=== PATIENT | male | born 1950 | race Two or more races ===

== ENCOUNTER 2019-11-21 11:48 | Inpatient (IN) | payer MEDICARE, BC ==
[~2019-11-21] VITALS: Ht 172.7 cm; Wt 86.2 kg
[2019-11-21] MEDS ORDERED: PANTOPRAZOLE 40 MG/10 ML VIAL INJ IV STA (12:19)
[2019-11-21] MEDS ORDERED: SODIUM CHLORIDE 0.9% 500 ML IVB ONE (12:19)
[2019-11-21] MEDS ORDERED: MORPHINE SULFATE 4 MG/ML SYR/VIAL IV ONE (12:30)
[2019-11-21] MEDS ORDERED: ONDANSETRON HCL 4 MG/2 ML VIAL IV ONE (12:30)
[2019-11-21] MEDS ORDERED: HYDROmorphone HCL 2 MG/ML VL IV ONE (13:15)
[2019-11-21 13:23] LABS: Basophils # (auto) 0 uL; Basophils % (auto) 0.4 % (0.0-2.0); Eosinophils # (auto) 0.1 uL; Hematocrit 46.3 % (41.0-53.0); Hemoglobin 15.4 g/dL (13.5-17.5); Lymphocytes # (auto) 1.3 uL; Mean Corpuscular Hemoglobin 30.6 pg (28.0-32.0); Mean Corpuscular Hgb Conc. 33.1 g/dL (32.0-36.0); Mean Corpuscular Volume 92.3 fL (80.0-100.0); Monocytes # (auto) 0.6 uL; Neutrophils # (auto) 9.1 uL; Neutrophils % (auto) 81.6 % (37.0-80.0); Platelet Count (auto) 124 10^3/uL (140-450); Red Blood Cells 5.02 10^6/uL (4.5-5.90); Red Cell Distribution Width 14.1 % (11.8-14.3); White Blood Cell 11.2 10^3/uL (4.4-10.8)
[2019-11-21 13:45] LABS: Anion Gap 11 (5-15); Blood Urea Nitrogen 22 mg/dL (7-18); Calcium 9.5 mg/dL (8.5-10.1); Carbon Dioxide 24 mmol/L (21-32); Chloride 104 mmol/L (98-107); Glucose 201 mg/dL (74-106); Magnesium 1.9 mg/dL (1.6-2.6); Potassium 4.6 mmol/L (3.5-5.1); Sodium 139 mmol/L (136-145)
[2019-11-21 13:49] LABS: Albumin 3.9 g/dL (3.4-5.0); BUN/Creatinine Ratio 15.3; GFR African American 63 mL/min; GFR Non-African American 52 mL/min
[2019-11-21 13:54] LABS: Alanine Aminotransferase 30 U/L (16-61); Alkaline Phosphatase 68 U/L (45-117); Aspartate Aminotransferase 25 U/L (15-37); Bilirubin, Total 0.5 mg/dL (0.2-1.0); Total Protein 7.8 g/dL (6.4-8.2)
[2019-11-21] MEDS ORDERED: PROCHLORPERAZINE EDISYLATE 5 MG/ML 2ML VIAL IV ONE (15:15)
[2019-11-21] MEDS ORDERED: GASTROGRAFIN 120 ML SOL ONE (15:50)
[2019-11-21] MEDS ORDERED: DEXTROSE (50%) 50ML SYRG IV PRN (16:00)
[2019-11-21] MEDS ORDERED: PROMETHAZINE HCL 25 MG/ML 1ML IV PRN (16:00)
[2019-11-21] MEDS ORDERED: cefTRIAXone 1GM/50ML D5W 50 ML IV ONE (16:00)
[2019-11-21] MEDS ORDERED: HYDROmorphone HCL 2 MG/ML VL IV PRN (16:00)
[2019-11-21] MEDS ORDERED: NITROGLYCERIN 0.4 MG SL TAB SL PRN (16:00)
[2019-11-21] MEDS: FAMOTIDINE (10MG/ML) 2ML VL IV SCH (17:55)
[2019-11-21] MEDS: SODIUM CHLORIDE 0.9% 1,000 ML IV SCH (17:56)
[2019-11-21] MEDS: HYDROmorphone HCL 2 MG/ML VL IV PRN (18:18)
--- NOTE | 2019-11-21 18:30 | NUR ---
Telemetry admit from [facility] admitted to Telemetry unit after SBAR received. Patient oriented to Re Prado, RN primary RN, unit, room, bed, and unit policies regarding patient care and visiting hours. Patient now on continuous telemetry monitoring, tele box # 14. Patient weighed by bedscale and encouraged to call if they need something. All questions and concerns addressed, patient verbalized understanding.
[2019-11-21] MEDS ORDERED: APIX2.5T PO (19:04)
[2019-11-21] MEDS ORDERED: EMPA1TAB3 PO (19:04)
[2019-11-21] MEDS ORDERED: REPA1TAB5 OR (19:04)
[2019-11-21] MEDS ORDERED: ATOR20TA50 PO (19:04)
[2019-11-21] MEDS ORDERED: SITA50TA28 PO (19:04)
[2019-11-21] MEDS ORDERED: PIO30T PO (19:04)
[2019-11-21] MEDS: InsuLIN REG 1unit/0.01ml Soln (100units/ml) SC SCH (19:20)
[2019-11-21] MEDS: ACCU-CHEK COMFORT CURVE STRIP VI SCH (19:24)
--- NOTE | 2019-11-21 20:00 | NUR ---
OPEN NOTE assumed care of pt, upon entering room pt awake, alert and oriented x4. pt on room air no distress noted or expressed. pt denies any pain at this time. pt family at bedside. pt and family updated on plan of care, all questions addressed. pt has NGT placed, CXR confirming placement instructed to advance 4cm, pt tolerated well. and repeat CXR ordered. bed locked, low and 2x rails up. nurse encouraged pt to call as needed. this nurse will round q1hr and prn. call light in reach.
[2019-11-21 22:00] VITALS: BP 155/77
--- NOTE | 2019-11-21 22:07 | NUR ---
NGT placement confirmed via CXR. pt connected to LIS.
[2019-11-21] MEDS: metroNIDAZOLE 500MG/100ML 100 ML IV SCH (22:08)
[2019-11-22] MEDS: InsuLIN REG 1unit/0.01ml Soln (100units/ml) SC SCH ×4 (00:30→18:00)
[2019-11-22] MEDS: ACCU-CHEK COMFORT CURVE STRIP VI SCH ×4 (00:30→18:21)
[2019-11-22] MEDS: SODIUM CHLORIDE 0.9% 1,000 ML IV SCH ×3 (01:48→22:22)
[2019-11-22] MEDS: HYDROmorphone HCL 2 MG/ML VL IV PRN (02:07)
[2019-11-22] MEDS: FAMOTIDINE (10MG/ML) 2ML VL IV SCH ×2 (04:00→16:50)
[2019-11-22 05:30] VITALS: BP 126/77
[2019-11-22] MEDS: metroNIDAZOLE 500MG/100ML 100 ML IV SCH ×3 (06:17→22:02)
--- NOTE | 2019-11-22 06:39 | NUR ---
100ml brown liquid in suction canister
--- NOTE | 2019-11-22 07:10 | NUR ---
Opening Shift Note Assumed care of patient, awake and alert. No S/S of distress/SOB or pain. Instructed on POC and to call for assist PRN, will continue to monitor for changes Q1hr and PRN. Bed is set in lowest locked position with side rails up x 2 for safety and call light is within reach.
[2019-11-22 08:05] VITALS: BP 152/88
[2019-11-22 08:41] VITALS: BP 152/88
--- NOTE | 2019-11-22 09:09 | NUR ---
Patient off unit Taken down via wheelchair to radiology for small bowel series. No signs/symptoms of distress noted at this time.
[2019-11-22] MEDS: ENOXAPARIN SOD 80 MG/0.8ML SYRINGE SC SCH ×2 (10:00→22:23)
[2019-11-22] MEDS: cefTRIAXone 1GM/50ML D5W 50 ML IV SCH (10:33)
--- NOTE | 2019-11-22 10:39 | NUR ---
MD at bedside Updated pt on POC, per MD keep suction off for now, and patient is to remain NPO.
[2019-11-22 11:02] LABS: Basophils # (auto) 0 uL; Basophils % (auto) 0.3 % (0.0-2.0); Eosinophils # (auto) 0 uL; Eosinophils % (auto) 0.3 % (0.0-7.0); Hematocrit 49.2 % (41.0-53.0); Hemoglobin 15.9 g/dL (13.5-17.5); Lymphocytes # (auto) 0.9 uL; Lymphocytes % (auto) 8.1 % (10.0-50.0); Mean Corpuscular Hemoglobin 30.5 pg (28.0-32.0); Mean Corpuscular Hgb Conc. 32.4 g/dL (32.0-36.0); Mean Corpuscular Volume 93.9 fL (80.0-100.0); Monocytes # (auto) 0.9 uL; Monocytes % (auto) 7.8 % (0.0-12.0); Neutrophils # (auto) 9.7 uL; Neutrophils % (auto) 83.5 % (37.0-80.0); Platelet Count (auto) 140 10^3/uL (140-450); Red Blood Cells 5.24 10^6/uL (4.5-5.90); Red Cell Distribution Width 14.4 % (11.8-14.3); White Blood Cell 11.7 10^3/uL (4.4-10.8)
[2019-11-22 11:14] LABS: Albumin 4.3 g/dL (3.4-5.0); Calcium 9.8 mg/dL (8.5-10.1); Potassium 4.2 mmol/L (3.5-5.1)
[2019-11-22 11:17] LABS: BUN/Creatinine Ratio 14.5; Total Protein 8.1 g/dL (6.4-8.2)
[2019-11-22 12:49] VITALS: BP 137/67
[2019-11-22 17:07] VITALS: BP 120/75
[2019-11-22] MEDS ORDERED: hydrALAZINE HCL 20 MG/ML VL IV PRN (17:15)
[2019-11-22 22:46] VITALS: BP 144/84
[2019-11-23] MEDS: D5W/SOD CHL 0.45% 1,000 ML IV SCH ×2 (00:10→09:13)
[2019-11-23] MEDS: FAMOTIDINE (10MG/ML) 2ML VL IV SCH ×2 (04:59→17:15)
[2019-11-23 05:35] VITALS: BP 141/77
[2019-11-23] MEDS: ACCU-CHEK COMFORT CURVE STRIP VI SCH ×4 (06:00→17:15)
[2019-11-23] MEDS: metroNIDAZOLE 500MG/100ML 100 ML IV SCH ×3 (06:00→21:53)
[2019-11-23] MEDS: InsuLIN REG 1unit/0.01ml Soln (100units/ml) SC SCH ×4 (06:00→17:15)
--- NOTE | 2019-11-23 07:30 | NUR ---
OPENING NOTE ASSUMED CARE OF PT. ALERT AND ORIENTED. NO S/S OF SOB/DISTRESS NOTED. DENIES ANY PAIN. SAFETY PRECAUTIONS IN PLACE. BED SET TO LOWEST POSITION/LOCKED, BEDSIDE RAILS UP X2, CALL LIGHT WITH IN REACH. INSTRUCTED PT TO CALL FOR ASSISTANCE. UPDATED ON POC. PT VERBALIZED UNDERSTANDING. WILL CONTINUE TO MONITOR Q1HR AND PRN.
[2019-11-23 07:43] LABS: Basophils # (auto) 0 uL; Basophils % (auto) 0.6 % (0.0-2.0); Eosinophils # (auto) 0.2 uL; Eosinophils % (auto) 2.8 % (0.0-7.0); Hemoglobin 15.2 g/dL (13.5-17.5); Lymphocytes # (auto) 1.7 uL; Lymphocytes % (auto) 20.9 % (10.0-50.0); Mean Corpuscular Hemoglobin 30.4 pg (28.0-32.0); Mean Corpuscular Hgb Conc. 32.2 g/dL (32.0-36.0); Mean Corpuscular Volume 94.4 fL (80.0-100.0); Monocytes # (auto) 0.6 uL; Monocytes % (auto) 7.2 % (0.0-12.0); Neutrophils # (auto) 5.5 uL; Neutrophils % (auto) 68.5 % (37.0-80.0); Nucleated Red Blood Cells % 0.1 %; Platelet Count (auto) 119 10^3/uL (140-450); Red Blood Cells 4.98 10^6/uL (4.5-5.90); Red Cell Distribution Width 14.4 % (11.8-14.3)
[2019-11-23 08:09] LABS: BUN/Creatinine Ratio 18.8; Calcium 8.8 mg/dL (8.5-10.1); Magnesium 2.2 mg/dL (1.6-2.6); Potassium 3.5 mmol/L (3.5-5.1)
[2019-11-23 08:47] VITALS: BP 157/83
[2019-11-23] MEDS: cefTRIAXone 1GM/50ML D5W 50 ML IV SCH (09:13)
[2019-11-23] MEDS: ENOXAPARIN SOD 80 MG/0.8ML SYRINGE SC SCH (09:13)
--- NOTE | 2019-11-23 12:15 | NUR ---
NGT removal NGT removed per MD order following explanation and instruction to patient. Patient verbalized understanding prior to removal. Patient tolerated well.
[2019-11-23 13:00] VITALS: BP 139/80
--- NOTE | 2019-11-23 15:03 | NUR ---
NUTRITION ASSESSMENT NOTES Please refer to link notes of nutrition screen form filed under the intervention section of the plan of care for further details. Est. Needs: 1650 kcal to 2050 kcal (20-25 kcal/kgBW), 69 gms to 86 gms pro (0.8-1.0 gms/kgBW). Will continue to monitor pertinent labs and reassess nutrient need prn Thank you. Addendum: 11/23/19 at [address] Amended: Links added.
[2019-11-23 16:56] VITALS: BP_SYST 88
[2019-11-23] MEDS ORDERED: LACTULOSE 20Gm/30ML SOLN PO PRN (17:30)
--- NOTE | 2019-11-23 19:30 | NUR ---
Opening Shift Note Assumed care of patient, awake and alert. Family on bedside. No S/S of distress/SOB or pain. Instructed on POC and to call for assist PRN, will continue to monitor for changes Q1hr and PRN.
[2019-11-23] MEDS: APIXABAN 2.5 MG TAB PO SCH (21:53)
[2019-11-23] MEDS: DOCUSATE SOD 100 MG CAP PO SCH (21:53)
[2019-11-23 22:00] VITALS: BP 148/82
[2019-11-24] MEDS: FAMOTIDINE (10MG/ML) 2ML VL IV SCH (03:58)
[2019-11-24 05:00] VITALS: BP 150/76
[2019-11-24] MEDS: InsuLIN REG 1unit/0.01ml Soln (100units/ml) SC SCH ×3 (06:00→11:51)
[2019-11-24] MEDS: ACCU-CHEK COMFORT CURVE STRIP VI SCH ×3 (06:22→11:51)
[2019-11-24] MEDS: metroNIDAZOLE 500MG/100ML 100 ML IV SCH ×2 (06:23→14:00)
[2019-11-24 07:14] LABS: Basophils # (auto) 0.1 uL; Basophils % (auto) 0.7 % (0.0-2.0); Eosinophils # (auto) 0.3 uL; Eosinophils % (auto) 4.2 % (0.0-7.0); Hemoglobin 14.1 g/dL (13.5-17.5); Lymphocytes # (auto) 1.1 uL; Lymphocytes % (auto) 15.7 % (10.0-50.0); Mean Corpuscular Hemoglobin 31.2 pg (28.0-32.0); Mean Corpuscular Hgb Conc. 33.5 g/dL (32.0-36.0); Mean Corpuscular Volume 93.1 fL (80.0-100.0); Monocytes # (auto) 0.6 uL; Monocytes % (auto) 9.3 % (0.0-12.0); Neutrophils # (auto) 4.9 uL; Neutrophils % (auto) 70.1 % (37.0-80.0); Platelet Count (auto) 102 10^3/uL (140-450); Red Blood Cells 4.51 10^6/uL (4.5-5.90); White Blood Cell 6.9 10^3/uL (4.4-10.8)
[2019-11-24 07:37] LABS: Potassium 3.9 mmol/L (3.5-5.1)
[2019-11-24 07:42] LABS: Albumin 3.4 g/dL (3.4-5.0); BUN/Creatinine Ratio 15.7; Bilirubin, Total 0.6 mg/dL (0.2-1.0); Calcium 8.3 mg/dL (8.5-10.1); Phosphorus 2.2 mg/dL (2.5-4.90); Total Protein 6.6 g/dL (6.4-8.2)
[2019-11-24 08:19] VITALS: BP 154/83
[2019-11-24] MEDS: D5W/SOD CHL 0.45% 1,000 ML IV SCH (08:45)
[2019-11-24] MEDS: cefTRIAXone 1GM/50ML D5W 50 ML IV SCH (09:33)
[2019-11-24] MEDS: DOCUSATE SOD 100 MG CAP PO SCH (09:33)
[2019-11-24] MEDS: APIXABAN 2.5 MG TAB PO SCH (09:34)
[2019-11-24] MEDS ORDERED: ATORVASTATIN 20 MG TAB PO SCH (10:00)
[2019-11-24] MEDS ORDERED: ENOXAPARIN SOD 40 MG/0.4 ML SYRINGE SC SCH (10:00)
[2019-11-24 12:22] VITALS: BP 130/72
[2019-11-24 14:08] VITALS: BP 130/72
--- NOTE | 2019-11-24 15:11 | NUR ---
DISCHARGE Discharge instructions given as ordered. Encourage to follow up with PMD as instructed. All questions and concerns addressed. Patient verbalized understanding. Medication reconciliation form completed and copy given to patient. IV removed with catheter intact, pressure dressing applied. Telemetry unit returned to ICU. Patient taken to vehicle via wheelchair with all personal belongings, accompanied by staff and family member. No distress noted at time of departure.
[2019-11-24] MEDS ORDERED: DOCU-94 PO (17:30)
[2019-11-24] MEDS ORDERED: ATOR20TA50 PO (17:30)
[2019-11-24] MEDS ORDERED: SITA50TA28 PO (17:30)
[2019-11-24] MEDS ORDERED: LACT10SO3 PO (17:30)
[2019-11-24] MEDS ORDERED: FAM20T PO (17:30)
[2019-11-24] MEDS ORDERED: APIX2.5T PO (17:30)
== END 2019-11-24 15:08 | disposition home or self-care (01) | DRG 388 ==
LOC: ER 11:48 → TELE 11:49 → TELE-EAST 18:26
PROVIDERS: ADMIT Internal Medicine; ATTEND Internal Medicine
DX: K56.600 Partial intestinal obstruction, unspecified as to cause (principal); N17.0 Acute kidney failure with tubular necrosis; Z93.3 Colostomy status; N40.0 Benign prostatic hyperplasia without lower urinary tract symptoms; E11.22 Type 2 diabetes mellitus with diabetic chronic kidney disease; E66.9 Obesity, unspecified; E78.5 Hyperlipidemia, unspecified; I12.9 Hypertensive chronic kidney disease with stage 1 through stage 4 chronic kidney disease, or unspecified chronic kidney disease; N18.9 Chronic kidney disease, unspecified; Z82.3 Family history of stroke; Z83.3 Family history of diabetes mellitus; Z86.718 Personal history of other venous thrombosis and embolism; Z88.5 Allergy status to narcotic agent; Z68.28 Body mass index [BMI] 28.0-28.9, adult
CPT/HCPCS: 36415; 71045; 74176; 74250; 80048; 80053; 82962; 83036; 83690; 83735; 84100; 84484; 85025; 93005; 96361; 96365; 96375; 96376; C9113; G0378; J0696; J1815; J2405; J3490